=== PATIENT | male | born 1970 | race Caucasian/White ===

== ENCOUNTER 2017-07-13 18:48 | Observation (INO) | payer OTHER ==
[~2017-07-13] VITALS: Ht 172.7 cm; Wt 63.6 kg
--- NOTE | 2017-07-13 20:27 | NUR ---
WAS CALLED IN FOR MODIFIED TRAUMA AND CODE BLUE ON THE SAME PT. PT WAS TALKING AND DOING RELATIVELY WELL AT THE TIME OF MY ARRIVAL. HIS HAD ALREADY BEEN NOTIFIED AND WAS ON HER WAY TO THE HOSPITAL FROM [facility]. A COWORKER WAS WITH THE PT IN THE ROOM. PTS BOSS HAD QUESTIONS ABOUT PT'S CONDITION. I GOT INFORMATION FROM DR. SZYMANSKI AND PASSED THAT ALONG TO THE PTS BOSS AND COWORKER. THE PT'S ARRIVED AND I ESCORTED HER BACK TO THE TRAUMA ROOM. I EXPLAINED THE PT'S CONDITION AND WHAT SHE WOULD SEE. PT WAS BEING TAKEN BACK TO SURGERY TO HAVE WOUND CARED FOR.
--- NOTE | 2017-07-13 21:41 | NUR ---
PT ADMITTED FROM ER AT 2100 VIA STRETCHER, PT ALERT AND ORIENTED, NEWURO CHECKS DONE BY VELVET ALDANA RN. PT ALERT AND ORIENTED X3, FAMILY AT BEDSIDE. HIBICLENS BATH TO FACE AND CHEST COMPLETED. LR BOLUS STARTED . ANESTHESIA IN ROOM TALKING TO PT AT THIS TIME
--- NOTE | 2017-07-13 21:50 | NUR ---
pt to or via bed, acompanied by or staff
--- NOTE | 2017-07-13 21:50 | NUR ---
NURSE IN ROOM. GOT HER A BAG OF LR
--- NOTE | 2017-07-13 23:17 | NUR ---
07/13/17 2317 Patricia Green 2255 RESP EVEN AND UNLABORED. PT RESPONDING TO STIMULI. WARMER PLACED UNDER COVERS, PT REPORTED BEING COLD. VSS. 2307 PT REPORTING PAIN, VERY DROWSY BUT MOANED IN PAIN. PAIN MEDICATION GIVEN PER EMAR. 2310 O2 REMOVED, O2 SAT 100%. AT BEDSIDE. 2315 PT ASLEEP.
--- NOTE | 2017-07-13 23:35 | NUR ---
PATIENT BACK FROM [facility]. REPORT RECIEVED FROM PBX MANAGER ANNA. PATIENT IS AAOX3. PAIN AT 4/10. NO NAUSEA. PATIENT'S CLAUDIA ASSESSMENT IS WNL. WOUND ON RIGHT TEMPAL IS COVERED BY GAUZE. NO DRAINAGE VISIBAL. VS WNL. SCDS IN PLACE. IV FLUIDS INFUSING PER ORDER. AT BED SIDE. CONTINUOUS PULSE OX IN USE. TOLERATING SIPS OF WATER.
--- NOTE | 2017-07-13 23:37 | NUR ---
patient back from surgery
--- NOTE | 2017-07-14 00:05 | NUR ---
PATIENT REPORTS SLIGHT NAUSEA AFTER DRINKING SOME WATER. PRN ZOFRAN ADMINISTERED PER ORDER. NO EMESIS OCCURED.
--- NOTE | 2017-07-14 00:23 | NUR ---
PATIENT REPORTS PAIN INCREASING. 11/15. PRN PAIN MEDS GIVEN. PATIENT TOLERATING JELLO AND SIPS OF WATER. AT BEDSIDE.
--- NOTE | 2017-07-14 01:45 | NUR ---
PATIENT UP TO THE BATHROOM. PATIENT IS SLIGHTLY WEAK FROM SURGERY, BUT STEADY ON HIS FEET AND DENIES FEELING LIGHTHEADED. PATIENT REPORTS GOOD PAIN CONTROL AT THIS TIME. BACK IN BED. SCDS IN PLACE. IV FLUIDS INFUSING. PULSE OX IN PLACE. AT BEDSIDE.
--- NOTE | 2017-07-14 03:04 | NUR ---
ELISA MONZON TOOK POST OP VS. BP WAS 86/47, WHICH IS BELOW MD CALL PARAMETERS. CALLED MD CELL, LEFT MESSAGE. PATIENT IS NOT DZZY. OTHER VS ARE WNL. PAIN WELL CONTROLLED.
--- NOTE | 2017-07-14 03:30 | NUR ---
MADE AWARE OF ABNORMAL BP. NO NEW ORDERS.
--- NOTE | 2017-07-14 04:00 | NUR ---
PATIENT RESTING IN BED. NEURO ASSESSMENT WNL. PATIENT REPORTS GOOD PAIN CONTROL, RATED 2/10 MOSTLY ON THE RIGHT SIDE OF HIS HEAD AND RIGHT SHOULDER. PATIENT DENIES NAUSEA. NO TOILETING NEEDS AT THIS TIME. LUNGS ARE CLEAR. O2 SAT 98% ON RA. ABD IS SOFT AND NONTENDER. ACTIVE BOWEL SOUNDS. CMS INTACT. IV FLUIDS INFUSING, SITE WNL. AT BEDSIDE. PATIENT DENIES TOILETING NEEDS AT THIS TIME. DRESSING ON RIGHT TEMPAL IS C/D/I.
--- NOTE | 2017-07-14 05:15 | NUR ---
PATINT IS RESTING IN BED. HE DENIES NEEDS AT THIS TIME. ENCOURAGED PATIENT TO GET UP TO THE BATHROOM AND HE DENIED THE NEED AT THIS TIME. WILL CONTINUE TO MONITOR. CALL LIGHT IN REACH.
--- NOTE | 2017-07-14 06:45 | NUR ---
PATIENT UP TO THE BATHROOM. STEADY ON HIS FEET. REPORTS GOOD PAIN CONTROL. NO NUASEA. IS INTERESTED IN TRYING SOME REGULAR FOOD FOR BREAKFAST. MENU PROVIDED. PATIENT ROOM CLEANED UP. IV FLUIDS INFUSING, SITE WNL. NO NEW DRAINAGE NOTED ON DRESSING.
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
--- NOTE | 2017-07-14 08:03 | NUR ---
PT STATES HE HAS SOME KLONOPIN HE TAKES FOR ANIETY AND WAS WONDERING IF HE COULD TAKE IT. EXPLAINED THAT ALL MEDICATIONS HAVE TO BE AUTHORIZED BY DOC AND CHECKED OUT BY PHARM. FIRST. WILL CALL GAVE BED BATH WIPES AND WARM CLOTH TO CLEAN UP.
--- NOTE | 2017-07-14 09:42 | NUR ---
PATEINT HADN'T VOIDED WE ASKED HIM TO GO AHEAD AND TRY, HE HAD RESUTLS, WE PUT HIM BACK IN BED, HE SAID HE WAS A BIT NAUSEOUS.
--- NOTE | 2017-07-14 10:06 | NUR ---
CALLED DR SZYMANSKI TO ASK ABOUT KLONOPIN AND ZOFRAN. HE ORDERED BOTH. PLACED AND CALLED PHARM. ADMINISTERED TO PT SOON AVAILABLE. PT RATES PAIN 07/18
--- NOTE | 2017-07-14 12:18 | NUR ---
IN TO SEE PT. GAVE INSTRUCTIONS ON DISCHARGE, IE SHOWERING, FOLLOW UP APPT. PT AND DENIED FURTHER QUESTIONS.
--- NOTE | 2017-07-14 12:24 | CONS ---
[facility] [address] [place], [place] [address] Signed DATE OF CONSULTATION: ADDENDUM: SUBJECTIVE: He continues to do well without any further loss of hemodynamics and certainly no loss of consciousness. He does have a headache for which he will be treated with morphine intravenously. He has received Ancef as well as tetanus prophylaxis. I discussed his x-ray findings on the phone with Dr. Herrera, teleradiologist, confirming no evidence of intracranial hemorrhage or upper maxillofacial fracture. His C-spine is normal as well. Further additional history does note that he has had a basilar astrocytoma resection x2 at age 10 and at age 28. 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 I have discussed with him the risks of bleeding, infection, and other unforeseen complications related to operation. I plan for general anesthesia and repair of his right facial laceration. This could include injury to nerve or complex injury not yet revealed, which may include the parotid duct or other elements of the face. We are holding off unroofing the bandage of his head until he is under anesthesia. At present, there is no evidence of facial nerve injury and certainly, no sign of ongoing bleeding at this time. He is hemodynamically stable and his hematocrit was noted to be 40. Additionally, his electrolytes have returned. His only abnormality is a potassium of 3.1. MD JAMIL Gama/MONA /[id number] cc: Dr. Casiano Electronically Signed By: ESPERANZA SZYMANSKI MD 07/14/17 1224 PATIENT NAME: PADILLALAINA CONSULTATION DATE OF : 74 PHYSICIAN: ESPERANZA SZYMANSKI MD REPORT #: [id number] REPORT IS CONFIDENTIAL AND NOT TO BE RELEASED WITHOUT AUTHORIZATION
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
[2017-07-14] MEDS ORDERED: OXYCODON-ACETA1 EAC2 PO (12:26)
[2017-07-14] MEDS ORDERED: IBUPROFEN600 MG PO (12:26)
[2017-08-24] MEDS ORDERED: ELIQUIS5 MG PO (13:19)
[2017-08-24] MEDS ORDERED: PRILOSEC OTC20 MG PO (13:19)
[2017-08-24] MEDS ORDERED: ACID CONTROL150 MG PO (13:19)
[2017-08-24] MEDS ORDERED: ZOFRAN ODT4 MG PO (13:20)
[2017-08-24] MEDS ORDERED: CLONAZEPAM0.5 MG PO (13:20)
== END 2017-07-14 14:18 | disposition home or self-care (01) ==
LOC: ED 18:48 → MS 18:50
PROVIDERS: ADMIT Surgery
PROC: 0HQ0XZZ Repair Scalp Skin, External Approach (ICD-10-PCS; 2017-07-13)
PROC: 0JQ00ZZ Repair Scalp Subcutaneous Tissue and Fascia, Open Approach (ICD-10-PCS; principal; 2017-07-13 22:00)
DX: S01.01XA Laceration without foreign body of scalp, initial encounter (principal); W22.09XA Striking against other stationary object, initial encounter; Y93.89 Activity, other specified; Y99.0 Civilian activity done for income or pay; R55 Syncope and collapse; R00.1 Bradycardia, unspecified; I95.9 Hypotension, unspecified; Z88.0 Allergy status to penicillin
CPT/HCPCS: 00300; 70450; 72125; 80053; 81001; 83605; 85025; 90471; 90715; 92950; 96361; 96374; 96375; 96376; 99285; G0378; G0390; G0480; J0330; J0690; J2270; J2405; J2704; J2765; J3010; J7030; J7120